=== PATIENT | female | born 1985 | race Caucasian/White ===

== ENCOUNTER 2016-07-30 09:33 | Emergency (ER) | payer OTHER, BC ==
[~2016-07-30] VITALS: Ht 160 cm; Wt 72.6 kg
[~2016-07-30 09:33] MED LIST: 'PARAFON FORTE500 M1 PO; HYDROCODONE BIT1 T11 PO; IMITREX100 MG PO; NAPROSYN500 MG PO; ZOFRAN ODT4 MG SL
[2016-07-30] MEDS ORDERED: LISINOPRIL-HYDR1 TA1 PO (09:53)
[2016-07-30] MEDS ORDERED: FLECTOR1.3% TP (10:21)
[2016-07-30] MEDS ORDERED: CYCLOBENZAPRINE10 MG PO (10:21)
[2016-08-13] MEDS ORDERED: AVPAK AZITHROM250 M1 PO (22:07)
[2016-08-13] MEDS ORDERED: PROAIR RESPICL90 MCG INH (22:08)
[2016-08-13] MEDS ORDERED: BROMPHENIRAMIN473 M4 PO (22:08)
[2016-08-14] MEDS ORDERED: MEDROL DOSEPAK4 MG PO (00:26)
[2016-08-14] MEDS ORDERED: TUSSIN DM CLEA118 ML PO (01:23)
== END 2016-07-30 12:07 | disposition home or self-care (01) ==
LOC: ED 09:33
DX: S16.1XXA Strain of muscle, fascia and tendon at neck level, initial encounter (principal); S46.911A Strain of unspecified muscle, fascia and tendon at shoulder and upper arm level, right arm, initial encounter; I10 Essential (primary) hypertension; Z88.2 Allergy status to sulfonamides; Z88.1 Allergy status to other antibiotic agents; Z79.899 Other long term (current) drug therapy; V87.7XXA Person injured in collision between other specified motor vehicles (traffic), initial encounter; Y93.89 Activity, other specified; Y92.89 Other specified places as the place of occurrence of the external cause; Y99.9 Unspecified external cause status

== ENCOUNTER 2017-01-15 13:22 | Inpatient (IN) | payer BC ==
[~2017-01-15] VITALS: Ht 162.5 cm; Wt 87.5 kg
[~2017-01-15 13:22] MED LIST changes: +AVPAK AZITHROM250 M1 PO; +BROMPHENIRAMIN473 M4 PO; +CYCLOBENZAPRINE10 MG PO; +FLECTOR1.3% TP; +LISINOPRIL-HYDR1 TA1 PO; +MEDROL DOSEPAK4 MG PO; +PROAIR RESPICL90 MCG INH; +TUSSIN DM CLEA118 ML PO
[2017-01-15 13:23] VITALS: BP 141/93
[2017-01-15] MEDS ORDERED: DOXYCYCLINE MO100 M1 PO (13:24)
[2017-01-15] MEDS ORDERED: IBUPROFEN600 MG PO (13:24)
[2017-01-15] MEDS ORDERED: ESCITALOPRAM OX20 MG PO (13:29)
[2017-01-15 13:56] LABS: BASO % 0.3 % (0.0-1.0); EOS # 0.2 10*3/uL (0.0-0.4); EOS % 2.6 % (1.0-4.0); HEMATOCRIT 35.5 % (37.0-47.0); HEMOGLOBIN 11.6 g/dl (12.0-16.0); LYMPH # 1.9 10*3/uL (1.3-4.4); LYMPH % 28.8 % (27.0-41.0); MEAN CELL VOLUME 94.2 fl (81.0-99.0); MEAN CORPUSCULAR HGB 30.8 pg (27.0-31.0); MEAN CORPUSCULAR HGB CONC 32.7 g/dl (33.0-37.0); MONO # 0.5 10*3/uL (0.1-1.0); MONO % 7.7 % (3.0-9.0); NEUT # 3.9 10*3/uL (2.3-7.9); NEUT % 60.3 % (47.0-73.0); PLATELET COUNT AUTOMATED 231 10*3/uL (130-400); RED BLOOD COUNT 3.77 10*6/uL (4.10-5.10); RED CELL DISTRI WIDTH 12.5 % (0-14.5); WHITE BLOOD COUNT 6.5 10*3/uL (4.8-10.8)
[2017-01-15 14:10] LABS: ALBUMIN 3.3 gm/dl (3.1-4.5); ALKALINE PHOSPHATASE 48 U/L (45-117); BILIRUBIN, TOTAL 0.6 mg/dl (0.2-1.0); BUN 14 mg/dl (7-24); CARBON DIOXIDE 26 mmol/L (21-32); CHLORIDE 107 mmol/L (98-107); EST GLOM FILT AFRICAN AMERICAN > 60 ml/min; GLUCOSE 88 mg/dL (65-99); POTASSIUM 3.9 mmol/L (3.5-5.1); SGOT/AST 18 IU/L (3-35); SGPT/ALT 24 U/L (12-78); SODIUM 140 mmol/L (136-145); TOTAL PROTEIN 6.5 gm/dL (6.4-8.2)
[2017-01-15 16:27] VITALS: BP 102/63
[2017-01-15 20:00] VITALS: BP 118/76
[2017-01-16] VITALS: BP 121/83
[2017-01-16 06:57] LABS: BASO % 0.6 % (0.0-1.0); EOS # 0.1 10*3/uL (0.0-0.4); EOS % 2.3 % (1.0-4.0); HEMATOCRIT 32.8 % (37.0-47.0); HEMOGLOBIN 10.7 g/dl (12.0-16.0); LYMPH # 2.4 10*3/uL (1.3-4.4); LYMPH % 46.7 % (27.0-41.0); MEAN CELL VOLUME 94.8 fl (81.0-99.0); MEAN CORPUSCULAR HGB 30.9 pg (27.0-31.0); MEAN CORPUSCULAR HGB CONC 32.6 g/dl (33.0-37.0); MEAN PLATELET VOLUME 11.6 fl (9.6-12.3); MONO # 0.4 10*3/uL (0.1-1.0); NEUT # 2.2 10*3/uL (2.3-7.9); NEUT % 42.2 % (47.0-73.0); PLATELET COUNT AUTOMATED 207 10*3/uL (130-400); RED BLOOD COUNT 3.46 10*6/uL (4.10-5.10); RED CELL DISTRI WIDTH 12.5 % (0-14.5); WHITE BLOOD COUNT 5.1 10*3/uL (4.8-10.8)
[2017-01-16 07:34] LABS: CHLORIDE 112 mmol/L (98-107); POTASSIUM 4.1 mmol/L (3.5-5.1); SODIUM 143 mmol/L (136-145)
[2017-01-16 07:44] LABS: FOLIC ACID 8.19 ng/mL (>5.38); VITAMIN D, 25-HYDROXY 34.7 ng/mL (30-100)
[2017-01-16 07:45] LABS: ALBUMIN 2.6 gm/dl (3.1-4.5); ALKALINE PHOSPHATASE 39 U/L (45-117); BILIRUBIN, TOTAL 0.5 mg/dl (0.2-1.0); BUN 11 mg/dl (7-24); CARBON DIOXIDE 23 mmol/L (21-32); CHOLESTEROL 107 mg/dL (<200); EST GLOM FILT AFRICAN AMERICAN > 60 ml/min; GLUCOSE 78 mg/dL (65-99); HDL CHOLESTEROL 38 mg/dl (40-60); LDL CHOLESTEROL 60 mg/dL (9-159); MAGNESIUM 2.3 mg/dL (1.5-2.1); PHOSPHOROUS 2.6 mg/dL (2.5-4.9); SGOT/AST 15 IU/L (3-35); SGPT/ALT 20 U/L (12-78); TOTAL PROTEIN 5.5 gm/dL (6.4-8.2); TRIGLYCERIDES 46 mg/dl (<150); VLDL CHOLESTEROL 9 mg/dL (6-40)
[2017-01-16 08:00] VITALS: BP 110/78
[2017-01-16 08:01] LABS: HEMOGLOBIN A1c 4.8 % (4.8-5.6)
[2017-01-16 15:58] VITALS: BP 121/74
[2017-01-17] VITALS: BP 116/75
[2017-01-17 06:04] LABS: BASO % 0.7 % (0.0-1.0); EOS # 0.2 10*3/uL (0.0-0.4); EOS % 2.9 % (1.0-4.0); HEMATOCRIT 35.3 % (37.0-47.0); HEMOGLOBIN 11.6 g/dl (12.0-16.0); LYMPH # 2.7 10*3/uL (1.3-4.4); MEAN CELL VOLUME 94.6 fl (81.0-99.0); MEAN CORPUSCULAR HGB 31.1 pg (27.0-31.0); MEAN CORPUSCULAR HGB CONC 32.9 g/dl (33.0-37.0); MEAN PLATELET VOLUME 11.4 fl (9.6-12.3); MONO # 0.5 10*3/uL (0.1-1.0); MONO % 8.1 % (3.0-9.0); NEUT # 2.5 10*3/uL (2.3-7.9); PLATELET COUNT AUTOMATED 248 10*3/uL (130-400); RED BLOOD COUNT 3.73 10*6/uL (4.10-5.10); RED CELL DISTRI WIDTH 12.3 % (0-14.5); WHITE BLOOD COUNT 5.9 10*3/uL (4.8-10.8)
[2017-01-17 08:00] VITALS: BP 98/56
[2017-01-17] MEDS ORDERED: ZYVOX600 MG PO (10:29)
[2017-01-17 12:15] VITALS: BP 127/88
== END 2017-01-17 12:30 | disposition home or self-care (01) | DRG 602 ==
LOC: ED 13:22 → 5E 15:14 → EDHOLD 15:14 → 5E 15:20
PROVIDERS: Hospitalist; Nurse Practitioner Family
DX: L03.115 Cellulitis of right lower limb (principal); E43 Unspecified severe protein-calorie malnutrition; D64.9 Anemia, unspecified; I10 Essential (primary) hypertension; F41.1 Generalized anxiety disorder; E83.51 Hypocalcemia; E66.9 Obesity, unspecified; Z88.2 Allergy status to sulfonamides; Z88.1 Allergy status to other antibiotic agents; Z88.8 Allergy status to other drugs, medicaments and biological substances; Z82.49 Family history of ischemic heart disease and other diseases of the circulatory system; Z83.3 Family history of diabetes mellitus; Z82.5 Family history of asthma and other chronic lower respiratory diseases; Z79.899 Other long term (current) drug therapy; Z68.33 Body mass index [BMI] 33.0-33.9, adult

== ENCOUNTER → 2017-01-21 | Outpatient (CLI) | payer BC ==
[~2017-01-21] MED LIST changes: +DOXYCYCLINE MO100 M1 PO; +ESCITALOPRAM OX20 MG PO; +IBUPROFEN600 MG PO; +ZYVOX600 MG PO
[2017-01-21 10:44] LABS: BASO % 0.7 % (0.0-1.0); EOS # 0.2 10*3/uL (0.0-0.4); EOS % 2.6 % (1.0-4.0); HEMATOCRIT 37.3 % (37.0-47.0); HEMOGLOBIN 12.3 g/dl (12.0-16.0); LYMPH # 2.2 10*3/uL (1.3-4.4); LYMPH % 35.6 % (27.0-41.0); MEAN CELL VOLUME 93.3 fl (81.0-99.0); MEAN CORPUSCULAR HGB 30.8 pg (27.0-31.0); MEAN PLATELET VOLUME 10.7 fl (9.6-12.3); MONO # 0.4 10*3/uL (0.1-1.0); MONO % 5.7 % (3.0-9.0); NEUT # 3.4 10*3/uL (2.3-7.9); NEUT % 54.7 % (47.0-73.0); PLATELET COUNT AUTOMATED 266 10*3/uL (130-400); RED CELL DISTRI WIDTH 12.5 % (0-14.5); WHITE BLOOD COUNT 6.1 10*3/uL (4.8-10.8)
== END | disposition home or self-care (01) ==
LOC: LAB 10:25
PROVIDERS: Internal Medicine
DX: L03.115 Cellulitis of right lower limb (principal); D64.9 Anemia, unspecified

== ENCOUNTER 2018-03-15 07:49 | Inpatient (IN) | payer BC ==
[~2018-03-15] VITALS: Ht 160 cm; Wt 90.0 kg
[2018-03-15] VITALS (12 sets, daily range): BP systolic 90–122; BP diastolic 51–86
--- NOTE | ~2018-03-15 | O ---
[place], [place] OPERATIVE NOTE NAME: ZEINAB BLUNT [facility] #: [id number] UNIT #: [id number] ROOM: [facility] DOCTOR: JOHAN ZAVALA MD BIRTHDATE: [birth year] DOS: 03/15/2018 PREOPERATIVE DIAGNOSIS: Acute appendicitis. POSTOPERATIVE DIAGNOSIS: Acute appendicitis. PROCEDURE PERFORMED: Laparoscopic appendectomy. SURGEON: Johan Zavala MD [employer]: [employer]. ANESTHESIA: General with endotracheal intubation. INDICATIONS: This is a 32-year-old lady who presented to the Emergency Room with increasing right lower quadrant and periumbilical pain. A CT scan showed acute appendicitis. It was decided to take the patient to the operating room for the above-mentioned procedure. The procedure and its complications were explained to the patient in detail preoperatively. Complications that were discussed included but were not limited to bleeding, infection, hematoma/seroma/abscess formation, prolonged postoperative pain, damage to lying vital structures and she agreed to proceed. DESCRIPTION OF PROCEDURE: After identifying the patient, the patient was brought to the operating suite and laid in the supine position. After induction of general anesthesia, the left upper extremity was stuck to the patient's side and the parts were then painted and draped in the usual sterile fashion. After time-out procedure was called, subumbilical incision was made in the transverse fashion. The skin and the subcutaneous tissue were incised in the line of incision. The fascia was incised and 2 stay sutures with 0 Vicryl were taken on either side. The peritoneum was opened and a 12 mm Ruiz port was introduced into the peritoneal cavity and a pneumoperitoneum was created. Under direct vision and left lower quadrant incision of 10 mm and a suprapubic incision of 5 mm was made and appropriate size ports were introduced. The patient was placed in a Trendelenburg, right side up position. The appendix was found to be lying right next to the cecum and was acutely inflamed. It was held up with the help of a [place] forceps and the appendix base as well as the mesoappendix was stapled across with the help of an Endo-KAYLAH vascular stapler. Thereafter, the specimen was placed in an EndoCatch bag and removed from the peritoneal cavity and sent for histopathological diagnosis. Thereafter, hemostasis was achieved and saline was used for irrigation. After the saline and the irrigation fluid were sucked away, the operative site was inspected and there was no bleeding seen. At this point, the left lower quadrant and the epigastric ports were removed under direct vision and there was no bleeding seen. The umbilical port was also removed and the 2 stay sutures were tied together and an additional stitch was taken to close the fascia with the help of 0 Vicryl. Hemostasis was achieved with the help of electrocautery and then the level of the skin and local anesthesia was infiltrated in all the 3 incisions and the skin was approximated with the help of 4-0 Vicryl in a subcuticular running fashion. Dressing was placed. The patient tolerated the procedure well. She was [place], [place] OPERATIVE NOTE NAME[facility] [id number] UNIT #: [id number] ROOM: [facility] DOCTOR: JOHAN ZAVALA MD BIRTHDATE: [birth year] extubated uneventfully and brought back to the recovery room in stable fashion. There were no complications. Dr. Johan Zavala, the attending surgeon, was present throughout the operating case. Johan Zavala MD CM:OPRECORD:OPERATIVE NOTE [id number] JOHAN ZAVALA MD 03/15/18 1325 interface
[2018-03-15 08:23] LABS: BILIRUBIN NEGATIVE (NEGATIVE); BLOOD NEGATIVE (NEGATIVE); CLARITY SL CLOUDY (CLEAR); COLOR YELLOW (YELLOW); GLUCOSE NEGATIVE (NEGATIVE); KETONE NEGATIVE (NEGATIVE); LEUKO ESTERASE NEGATIVE (NEGATIVE); NITRITE NEGATIVE (NEGATIVE); SPECIFIC GRAVITY 1.025 (1.005-1.030)
[2018-03-15 08:34] LABS: BACTERIA 4+; CALCIUM OXALATE CRYSTALS 1+; MUCOUS 2+
[2018-03-15 08:38] LABS: BASO % 0.2 % (0.0-1.0); EOS % 0.3 % (1.0-4.0); HEMATOCRIT 36.8 % (37.0-47.0); HEMOGLOBIN 12.4 g/dl (12.0-16.0); LYMPH # 1.3 10*3/uL (1.3-4.4); MEAN CELL VOLUME 91.8 fl (81.0-99.0); MEAN CORPUSCULAR HGB 30.9 pg (27.0-31.0); MEAN CORPUSCULAR HGB CONC 33.7 g/dl (33.0-37.0); MEAN PLATELET VOLUME 10.6 fl (9.6-12.3); MONO # 0.8 10*3/uL (0.1-1.0); NEUT # 9.7 10*3/uL (2.3-7.9); NEUT % 81.2 % (47.0-73.0); PLATELET COUNT AUTOMATED 231 10*3/uL (130-400); RED BLOOD COUNT 4.01 10*6/uL (4.10-5.10); RED CELL DISTRI WIDTH 13.4 % (0-14.5); WHITE BLOOD COUNT 11.9 10*3/uL (4.8-10.8)
[2018-03-15 08:53] LABS: ALBUMIN 3.6 gm/dl (3.1-4.5); ALKALINE PHOSPHATASE 59 U/L (45-117); BUN 12 mg/dl (7-24); CHLORIDE 106 mmol/L (98-107); LIPASE 134 U/L (73-393); POTASSIUM 4.1 mmol/L (3.5-5.1); SGOT/AST 9 IU/L (3-35); SGPT/ALT 15 U/L (12-78); SODIUM 138 mmol/L (136-145); TOTAL PROTEIN 6.5 gm/dL (6.4-8.2)
[2018-03-15 08:55] LABS: BETA-HCG, QUANT < 1.0 mIU/mL (1-3)
[2018-03-15] MEDS ORDERED: NORCO 5-325 TA1 EACH PO (11:46)
[2018-03-15] MEDS ORDERED: CELEXA10 MG PO (15:05)
[2018-03-15] MEDS ORDERED: LAMICTAL ODT25 MG PO (15:06)
[2018-03-15] MEDS ORDERED: HYDROCHLOROTH12.5 M2 PO (15:07)
[2018-03-15] MEDS ORDERED: LISINOPRIL10 M1 PO (15:07)
[2018-03-16] VITALS: BP 96/52
[2018-03-16 07:07] LABS: BASO % 0.1 % (0.0-1.0); EOS % 0.1 % (1.0-4.0); LYMPH % 7.5 % (27.0-41.0); MEAN CORPUSCULAR HGB 30.9 pg (27.0-31.0); MEAN CORPUSCULAR HGB CONC 32.4 g/dl (33.0-37.0); MEAN PLATELET VOLUME 11.3 fl (9.6-12.3); MONO # 1.1 10*3/uL (0.1-1.0); MONO % 8.2 % (3.0-9.0); NEUT # 10.8 10*3/uL (2.3-7.9); NEUT % 83.3 % (47.0-73.0); PLATELET COUNT AUTOMATED 217 10*3/uL (130-400); RED CELL DISTRI WIDTH 13.6 % (0-14.5)
[2018-03-16 07:16] LABS: ALBUMIN 2.9 gm/dl (3.1-4.5); ALKALINE PHOSPHATASE 45 U/L (45-117); BUN 10 mg/dl (7-24); CHLORIDE 107 mmol/L (98-107); CREATININE 0.77 mg/dL (0.55-1.02); FREE T4 1.51 ng/dl (0.76-1.46); PHOSPHOROUS 2.6 mg/dL (2.5-4.9); POTASSIUM 3.7 mmol/L (3.5-5.1); SGOT/AST 9 IU/L (3-35); SGPT/ALT 14 U/L (12-78); SODIUM 139 mmol/L (136-145); TOTAL PROTEIN 5.8 gm/dL (6.4-8.2)
[2018-03-16 07:17] LABS: HEMATOCRIT 30.6 % (37.0-47.0); HEMOGLOBIN 9.9 g/dl (12.0-16.0); MEAN CELL VOLUME 95.6 fl (81.0-99.0)
[2018-03-16 08:00] VITALS: BP 100/65
[2018-03-16 12:00] VITALS: BP 100/60
[2018-03-16] MEDS ORDERED: VITAMIN D31000 UNI1 PO (14:34)
[2018-03-16] MEDS ORDERED: NATURE'S BLEND F1 MG PO (14:34)
== END 2018-03-16 15:25 | disposition home or self-care (01) | DRG 340 ==
LOC: ED 07:49 → EDHOLD 09:28 → 5E 09:28
PROVIDERS: Emergency Medicine; Surgery
PROC: 0DTJ4ZZ Resection of Appendix, Percutaneous Endoscopic Approach (ICD-10-PCS; principal; 2018-03-15)
DX: K35.3 Acute appendicitis with localized peritonitis (principal); E66.9 Obesity, unspecified; E83.51 Hypocalcemia; R79.82 Elevated C-reactive protein (CRP); F41.1 Generalized anxiety disorder; I10 Essential (primary) hypertension; F31.9 Bipolar disorder, unspecified; R82.71 Bacteriuria; Z83.3 Family history of diabetes mellitus; Z82.49 Family history of ischemic heart disease and other diseases of the circulatory system; Z88.1 Allergy status to other antibiotic agents; Z88.2 Allergy status to sulfonamides; Z88.8 Allergy status to other drugs, medicaments and biological substances; Z68.31 Body mass index [BMI] 31.0-31.9, adult; Z79.899 Other long term (current) drug therapy

== ENCOUNTER 2019-08-09 19:00 | Emergency (ER) | payer OTHER ==
[~2019-08-09] VITALS: Ht 160 cm; Wt 81.6 kg
[~2019-08-09 19:00] MED LIST changes: +CELEXA10 MG PO; +HYDROCHLOROTH12.5 M2 PO; +LAMICTAL ODT25 MG PO; +LISINOPRIL10 M1 PO; +NATURE'S BLEND F1 MG PO; +NORCO 5-325 TA1 EACH PO; +VITAMIN D31000 UNI1 PO
[2019-08-09 20:15] LABS: BASO % 0.2 % (0.0-1.0); EOS % 0.7 % (1.0-4.0); HEMATOCRIT 40.2 % (37.0-47.0); LYMPH # 1.6 10*3/uL (1.3-4.4); LYMPH % 36.7 % (27.0-41.0); MEAN CELL VOLUME 94.1 fl (81.0-99.0); MEAN CORPUSCULAR HGB 30.4 pg (27.0-31.0); MEAN CORPUSCULAR HGB CONC 32.3 g/dl (33.0-37.0); MEAN PLATELET VOLUME 11.1 fl (9.6-12.3); MONO # 0.5 10*3/uL (0.1-1.0); MONO % 12.1 % (3.0-9.0); NEUT # 2.2 10*3/uL (2.3-7.9); NEUT % 50.1 % (47.0-73.0); PLATELET COUNT AUTOMATED 176 10*3/uL (130-400); RED BLOOD COUNT 4.27 10*6/uL (4.10-5.10); RED CELL DISTRI WIDTH 13.3 % (0-14.5); WHITE BLOOD COUNT 4.3 10*3/uL (4.8-10.8)
[2019-08-09 20:46] LABS: ALBUMIN 3.2 gm/dl (3.1-4.5); ALKALINE PHOSPHATASE 53 U/L (45-117); BUN 9 mg/dl (7-24); CHLORIDE 111 mmol/L (98-107); CREATININE 0.77 mg/dL (0.55-1.02); POTASSIUM 3.8 mmol/L (3.5-5.1); SGOT/AST 13 IU/L (3-35); SGPT/ALT 21 U/L (12-78); SODIUM 141 mmol/L (136-145); TOTAL PROTEIN 6.4 gm/dL (6.4-8.2)
[2019-08-09 21:40] LABS: BACTERIA TRACE; BILIRUBIN 1+ (NEGATIVE); BLOOD 1+ (NEGATIVE); CLARITY CLEAR (CLEAR); COLOR YELLOW (YELLOW); GLUCOSE NEGATIVE (NEGATIVE); KETONE 2+ (NEGATIVE); LEUKO ESTERASE NEGATIVE (NEGATIVE); NITRITE NEGATIVE (NEGATIVE); RBC 0-2 rbc/hpf (0-2); SPECIFIC GRAVITY 1.025 (1.005-1.030); UROBILINOGEN 0.2 E.U./dl (0.2-1.0); WBC 0-2 wbc/hpf (0-5)
[2019-08-09 21:41] LABS: MUCOUS 4+
== END 2019-08-09 23:32 | disposition home or self-care (01) ==
LOC: ED 19:00
PROVIDERS: Emergency Medicine
DX: E86.0 Dehydration (principal); R11.10 Vomiting, unspecified; R42 Dizziness and giddiness; R05 Cough; H53.143 Visual discomfort, bilateral; I10 Essential (primary) hypertension; J45.909 Unspecified asthma, uncomplicated; E66.9 Obesity, unspecified; Z68.30 Body mass index [BMI] 30.0-30.9, adult; Z88.2 Allergy status to sulfonamides; Z88.1 Allergy status to other antibiotic agents; Z79.899 Other long term (current) drug therapy; Z90.49 Acquired absence of other specified parts of digestive tract